=== PATIENT | female | born 1970 | race Caucasian/White ===

== ENCOUNTER 2022-04-27 13:41 | Outpatient (CLI) | payer OTHER, SELFPAY ==
--- NOTE | ~2022-04-27 | MR_ITS ---
EXAMINATION: MR brain IAC wo/w con DATE: 04/27/2022 15:07 INDICATION: Sensorineural hearing loss. TECHNIQUE: Magnetic resonance imaging (MRI) of the brain, brainstem, and internal auditory canals was performed without and with 17 mL MultiHance intravenous contrast. COMPARISON: Brain MRI 05/25/2015 FINDINGS: There is no intracranial hemorrhage, acute infarction, or abnormal intracranial mass lesion . The ventricles are normal in size. The paranasal sinuses are clear. The orbits are normal. The mast oid air cells are normal. The internal auditory canals and inner and middle ears are normal. IMPRESSION: 1. Normal brain. Reviewed, dictated and finalized at location A. [employer] IMPRESSION: 1. Normal brain.
== END 2022-04-27 13:42 | disposition home or self-care (01) ==
PROVIDERS: PCP Internal Medicine; Visit Provider Otolaryngology
DX: H90.42 Sensorineural hearing loss, unilateral, left ear, with unrestricted hearing on the contralateral side (principal)
CPT/HCPCS: 70553; A9577

== ENCOUNTER 2022-05-14 10:48 | Emergency (ER) | payer OTHER, SELFPAY ==
[2022-05-14 11:51] VITALS: BP 128/86; PULSE 85; RESP 16; TEMP 36.9; O2SAT 100
--- NOTE | 2022-05-14 12:17 | ED.URI ---
HPI - URI/Sore Throat General Chief Complaint: Upper Respiratory Infection Stated Complaint: sore throat, ears clogged Time Seen by Provider: 05/14/22 12:17 Source: patient and RN notes reviewed Mode of arrival: ambulatory Limitations: no limitations History of Present Illness HPI Narrative: 51-year-old female presented for complaint of sore throat bilateral ear pain and mild cough over the last 3 days. She has continued to have ibuprofen Mucinex for symptoms. She denies shortness of breath, wheezing, nausea vomiting, diarrhea, fevers or chills. She endorses her daughter has similar symptoms. MD elicited complaint: cough Related Data Home Medications Medication Instructions Recorded Confirmed levothyroxine 125 mcg tablet 125 mcg PO DAILY 05/14/22 05/14/22 Allergies Allergy/AdvReac Type Severity Reaction Status Date / Time hydrocodone Allergy Unknown Unknown Verified 05/14/22 11:53 Review of Systems Review of Systems: Per HPI [facility] Family History Family History Mother Family history of thyroid disease Family history of migraine headaches Hypertension Sibling Family history of thyroid disease Family history of migraine headaches Father Family history of obesity Family history of arthritis Family history of diabetes mellitus in first degree relative Grandparent Family history of glaucoma Hypertension Social History Social History Smoking status: Never smoker Second hand tobacco smoke exposure: No Alcohol intake: never Exam Narrative: GENERAL: well-appearing EYES: PERRLA, conjunctivae clear ENT: Mucous membranes moist. TM pearly cruz with dull light reflex bilaterally; no tragal tenderness. Oropharynx erythematous without lesions or exudate, no drooling, no hoarseness, no trismus, uvula midline. No tripod positioning, muffled voice, soft palate or pharyngeal wall bulging NECK: Supple. No lymphadenopathy CHEST: Clear to auscultation, breath sounds equal. HEART: Regular rate and rhythm. No murmur heard. SKIN: Warm, dry, no rash. NEURO: Alert and oriented x3. PSYCH: Normal mood and affect Course Course Emergency Course: Patient is aware of diagnosis, understands and agrees to treatment plan. Anticipatory guidance given. Patient agrees to follow-up as directed and is aware of reasons to seek care at the emergency department. Portions of this record may have been created with voice recognition software Level of Care: Express Care Visit Vital Signs Vital signs: Vital Signs Temperature 98.5 F 05/14/22 11:51 Pulse Rate 85 05/14/22 11:51 Respiratory Rate 16 05/14/22 11:51 Blood Pressure 128/86 05/14/22 11:51 Pulse Oximetry 100 05/14/22 11:51 Oxygen Delivery Room Air 05/14/22 11:51 Temperature 98.5 F 05/14/22 11:51 Pulse Rate 85 05/14/22 11:51 Respiratory Rate 16 05/14/22 11:51 Blood Pressure 128/86 05/14/22 11:51 Pulse Oximetry 100 05/14/22 11:51 Oxygen Delivery Room Air 05/14/22 11:51 reviewed MDM - URI/Sore Throat MDM Narrative Medical decision making narrative: Strep negative. Results reviewed with patient Advised supportive measures and signs/symptoms to go to the ER. Pt is appropriate for outpt treatment and f/u. Differential Diagnosis Differential diagnosis: Likely upper respiratory infection, sinusitis, viral infection and pharyngitis Lab Data Labs: Strep Screen Presumptive Negative *(Reference Range: Negative)* Discharge Plan Discharge Clinical Impression: Viral infection Patient Disposition: Home, Self-Care Condition: Stable Instructions: Viral Syndrome (ED) Additional Instructions: Rapid strep swab was negative today You will be notified in a few days if the culture comes back positive for strep, and appropriate antibiotics will be
== END 2022-05-14 12:29 | disposition home or self-care (01) ==
PROVIDERS: Emergency Provider Nurse Practitioner Family
DX: B34.9 Viral infection, unspecified (principal)
CPT/HCPCS: 87081; 87880; 99213; G0463

== ENCOUNTER 2023-06-19 14:00 | Outpatient (RCR) | payer OTHER, SELFPAY ==
--- NOTE | 2023-03-29 14:41 | OPREHPOC ---
Outpatient Therapy Plan of Care This is a Multidisciplinary Plan of Care that may contain components documented by all disciplines (PT, OT, and ST.) PT Problem 1 PT Problem #1 Knowledge Deficit PT Goal 1 Goal 1. Patient will perform independent HEP 2. Patient will verbalize knowledge of toileting techniques to decrease constipation Target Visit 5 PT Problem 2 PT Problem #2 Pain PT Goal 1 Goal 1. Pt will report pain no higher than 2/10 with all activities 2. Pt will demo normal pelvic floor muscle tone to decrease constipation and pain with intercourse Target Visit 5 PT Problem 3 PT Problem #3 Impaired Functional ADLs PT Goal 1 Goal 1. Patient will report BM 5/7 days Target Visit 5
--- NOTE | 2023-03-29 14:41 | PTOPEVAL1 ---
Assessment and note entered by Ebony Stovall DPT Evaluation Information Assessment Status Evaluation Subjective Information Pt reports a history of constipation and recently had anal manometry test performed. Urinates 5-6 times a day and not usually at night. Urinary incontinence maybe once a week. Can hold urge 10-20 minutes. Denies pain. BM once every 2 days with lubiprostone. Denies fecal incontinence. Sometimes pain with BM and abdominal pain. Pain highest recently 5-6/10 and lowest 05/22. Reports a lot of straining with BM, does not sit on the toilet more than a few minutes. History of pelvic pain with intercourse, tampons, pap smears for the past 5 years. Pt has been 3 times, 2 deliveries: vaginal for both, episiotomy for first. Hysterectomy in 2019. Has been diagnosed with IBS since her teens and autoimmune gastritis. States she gets a lot of bloating as well. Reports a fear about dealing with BM while out in the community, able to do her normal activities with pain. Drinks coffee in the morning then switches to water, soda occasionally but not daily. Eats 3 meals a day, sometimes a snack in the evening. Eats a variety of food groups. Returns to MD on 04/27. Patient goal: be able to completely defecate, decrease pain Reported Pain Level Pain Score 0: Self Report Assessment PT Clinical Summary The patient is presenting to skilled therapy with a history of constipation and pelvic/abdominal pain. She presents with decreased core strength, decreased pelvic floor strength/endurance and increased pelvic floor muscle tone which are contributing to her pain and constipation. She will highly benefit from therapy to address these impairments in order to reduce pain and improve function. Plan of Care Interventions Electrical Stimulation,Hot Pack/Cold Pack,Manual Therapy,Neuro Re-education,Patient/Caregiver Education,Therapeutic Activities,Therapeutic Exercise PT Services Indicated Yes Treatment Frequency and 1 time a week for 4 visits Duration These treatments will address the objective and functional deficits as defined above. The patient will be advanced safely and appropriately in order for the patient to progress towards his/her prior level of function. Additional exercis
--- NOTE | 2023-05-03 10:41 | OPREHPOC ---
Outpatient Therapy Plan of Care This is a Multidisciplinary Plan of Care that may contain components documented by all disciplines (PT, OT, and ST.) PT Problem 1 PT Problem #1 Knowledge Deficit PT Goal 1 Goal 1. Patient will perform independent HEP 2. Patient will verbalize knowledge of toileting techniques to decrease constipation Target Visit 5 Progress Partially Met PT Problem 2 PT Problem #2 Pain PT Goal 1 Goal 1. Pt will report pain no higher than 2/10 with all activities 2. Pt will demo normal pelvic floor muscle tone to decrease constipation and pain with intercourse Target Visit 5 Progress Partially Met PT Problem 3 PT Problem #3 Impaired Functional ADLs PT Goal 1 Goal 1. Patient will report BM 5/7 days Target Visit 5 Progress Partially Met
--- NOTE | 2023-05-03 10:42 | PTOPPROG ---
Assessment and note entered by Ebony Stovall DPT Evaluation Information Assessment Status Progress Subjective Information Pt reports she is noticing some progress with therapy so far. No real pain in last week, but is still noticing a lot of muscle tightness and tension overall. Pt does report BM following use of stim last visit. Assessment PT Clinical Summary The patient has made good progress so far in therapy and reports decreased pelvic pain. She demonstrates improved hip strength and core strength. She continues to display increased muscle tone and will benefit from further therapy to address pain and return to full function. Plan of Care Interventions Electrical Stimulation,Hot Pack/Cold Pack,Manual Therapy,Neuro Re-education,Patient/Caregiver Education,Therapeutic Activities,Therapeutic Exercise PT Services Indicated Yes Treatment Frequency and 1 visit every other week x 3 visits Duration These treatments will address the objective and functional deficits as defined above. The patient will be advanced safely and appropriately in order for the patient to progress towards his/her prior level of function. Additional exercises will be introduced and as well as a comprehensive home exercise program upon discharge, if needed, ?to ensure carryover of functional gains achieved in the clinic. This treatment plan has been reviewed and agreement upon by the patient.
--- NOTE | 2023-06-19 14:27 | OPREHPOC ---
Outpatient Therapy Plan of Care This is a Multidisciplinary Plan of Care that may contain components documented by all disciplines (PT, OT, and ST.) PT Problem 1 PT Problem #1 Knowledge Deficit PT Goal 1 Goal 1. Patient will perform independent HEP 2. Patient will verbalize knowledge of toileting techniques to decrease constipation Target Visit 5 Progress Met PT Problem 2 PT Problem #2 Pain PT Goal 1 Goal 1. Pt will report pain no higher than 2/10 with all activities 2. Pt will demo normal pelvic floor muscle tone to decrease constipation and pain with intercourse Target Visit 5 Progress Partially Met PT Problem 3 PT Problem #3 Impaired Functional ADLs PT Goal 1 Goal 1. Patient will report BM 5/7 days Target Visit 5 Progress Met
--- NOTE | 2023-06-19 14:27 | PTOPDC ---
Assessment and note entered by Ebony Stovall DPT Evaluation Information Assessment Status Discharge Subjective Information Pt continues to report that therapy is helping. Is still focusing on getting enough fiber and intake . Urinary incontinence 2 times in the last month. Thinks her constipation has continued to improve, is having BM most days of the week currently. Reported Pain Level Pain Score 0: Self Report Assessment PT Clinical Summary The patient has made excellent progress in therapy . She reports improvements to her constipation symptoms and demonstrates improved pelvic floor strength, endurance, and muscle tone. Due to her progress, plan to discharge to [facility] at this time. She has been educated to follow up with MD and/or PT as needed. Plan of Care PT Services Indicated No
== END 2023-06-19 15:08 | disposition home or self-care (01) ==
LOC: ANHPT 14:00
DX: K58.1 Irritable bowel syndrome with constipation (principal); R27.8 Other lack of coordination; R10.9 Unspecified abdominal pain
CPT/HCPCS: 97014; 97110; 97112; 97140; 97162; 97530; 99199; G0283